=== PATIENT | female | born 1945 | race Caucasian/White ===

== ENCOUNTER 2025-08-16 19:31 | Emergency (ER) | payer MEDICARE, OTHER ==
[2025-08-16] MEDS ORDERED: Sodium Chloride 0.9% 10 ML Syringe FLUSH PRN (20:06)
[2025-08-16 20:07] LABS: BASOPHILS ABSOLUTE AUTO 0.1 x10-3/uL (0.0-0.1); BASOPHILS PERCENT AUTO 0.9 % (0.2-1.5); EOSINOPHILS ABSOLUTE AUTO 0.2 x10-3/uL (0.0-0.8); EOSINOPHILS PERCENT AUTO 2.1 % (0.6-8.1); LYMPHOCYTES ABSOLUTE AUTO 1.4 x10-3/uL (1.0-4.4); LYMPHOCYTES PERCENT AUTO 15.1 % (18.4-52.1); MEAN PLATELET VOLUME 9.4 fL (7.1-12.4); MONOCYTES ABSOLUTE AUTO 0.7 x10-3/uL (0.3-1.0); MONOCYTES PERCENT AUTO 8.1 % (4.4-15.7); NEUTROPHILS ABSOLUTE AUTO 6.7 x10-3/uL (1.5-6.3); NEUTROPHILS PERCENT AUTO 73.8 % (30.8-76.2); PLATELET COUNT,PLT 192 x10(3)uL (151-488); RED BLOOD CELL COUNT 4.58 x10(6)uL (3.60-5.20); RED CELL DISTRIBUTION WIDTH 14.1 % (12.3-16.5); WHITE BLOOD CELL COUNT,WBC 9.1 x10-3/uL (3.0-10.3)
[2025-08-16 20:07] LABS: GLUCOSE,URINE NORMAL (NORMAL); OCCULT BLOOD,URINE NEGATIVE (NEGATIVE)
[2025-08-16 20:11] LABS: APPEARANCE,URINE CLEAR (CLEAR); SQUAMOUS EPITHELIAL CELLS,UR FEW (NS,R,O)
[2025-08-16 20:15] LABS: BLOOD UREA NITROGEN,BUN 20 mg/dL (7-18); CARBON DIOXIDE,CO2 32 mmol/L (21-32); CHLORIDE,CL 104 mmol/L (100-110); CREATININE 0.9 mg/dL (0.55-1.02); EST CRCL DRUG DOSING (CG) 35.81 mL/min; ESTIMATED GFR 65 mL/min (>60); GLUCOSE RANDOM 102 mg/dL (80-116); POTASSIUM,K 4.1 mmol/L (3.5-5.3); SODIUM,NA 142 mmol/L (135-145)
[2025-08-16] MEDS: Ondansetron 4 MG/2 ML SDV IVPUSH ONE (20:15)
[2025-08-16 20:21] LABS: A/G RATIO 1.4; ALANINE AMINOTRANSFERASE,ALT 15 U/L (12-36); ASPARTATE AMNIOTRANSFERASE,AST 16 IU/L (5-25); BILIRUBIN TOTAL 0.6 mg/dL (0.1-1.3); PROTEIN TOTAL,TP 7.1 g/dL (6.0-8.0)
[2025-08-16] MEDS: Iopamidol 755 Mg/ML 100 ML Bottle IV SCH (21:07)
[2025-08-16] MEDS ORDERED: Naloxone 0.4 MG/ML SDV IVPUSH PRN (22:03)
[2025-08-16] MEDS: Lidocaine 2% HCl 6 ML Jel MM ONE (23:28)
== END 2025-08-17 06:04 ==
LOC: FB.ED 19:31
DX: K56.609 Unspecified intestinal obstruction, unspecified as to partial versus complete obstruction (principal); E86.0 Dehydration; I10 Essential (primary) hypertension; E78.00 Pure hypercholesterolemia, unspecified; F17.200 Nicotine dependence, unspecified, uncomplicated; Z90.49 Acquired absence of other specified parts of digestive tract; Z90.710 Acquired absence of both cervix and uterus; Z88.7 Allergy status to serum and vaccine; Z79.82 Long term (current) use of aspirin; Z79.899 Other long term (current) drug therapy
CPT/HCPCS: 36415; 43752; 71045; 74177; 80053; 81001; 83605; 83690; 83735; 85025; 86140; 96361; 96374; 96375; 96376; 99285; 99285-25; A9270-GY; J2270; J2405; J7040; Q9967